=== PATIENT | male | born 1995 | race Two or more races ===

== ENCOUNTER 2019-01-02 16:20 | Emergency (ER) | payer OTHER ==
[2019-01-02 16:29] VITALS: BP 140/94
--- NOTE | 2019-01-02 18:09 | ER Document Report ---
HPI - HPI Time Seen by Provider: 01/02/19 17:36 Pain Level: 4 Notes: Patient is a 23-year-old male who presents the emergency department with chief complaint of right ear pain. Patient reports this is been going on since this morning. He denies any fever. He does report recent upper respiratory infection. - CONSTITUTIONAL Constitutional: DENIES: Fever, Chills - EENT EENT: REPORTS: Ear Pain - right Past Medical History - General Information source: Parent - Social History Smoking Status: Never Smoker Frequency of alcohol use: None Drug Abuse: None Family History: Reviewed & Not Pertinent Patient has suicidal ideation: No Patient has homicidal ideation: No - Medical History Medical History: Negative Renal/ Medical History: Denies: Hx Peritoneal Dialysis Surgical Hx: Negative - Immunizations Immunizations up to date: Yes Vertical Provider Document - CONSTITUTIONAL Notes: PHYSICAL EXAMINATION: GENERAL: Well-appearing, well-nourished and in no acute distress. HEAD: Atraumatic, normocephalic. EYES: Pupils equal round extraocular movements intact, conjunctiva are normal. ENT: Nares patent, erythematous, bulging right tympanic membrane. Unremarkable left tympanic membrane. NECK: Normal range of motion LUNGS: No respiratory distress Musculoskeletal: Normal range of motion NEUROLOGICAL: Normal speech, normal gait. PSYCH: Normal mood, normal affect. SKIN: Warm, Dry, normal turgor, no rashes or lesions noted. - INFECTION CONTROL TRAVEL OUTSIDE OF THE [place] IN LAST 30 DAYS: No Course - Re-evaluation Re-evalutation: Patient's physical examination is most consistent with otitis media. Patient will be started on amoxicillin. Patient encouraged to continue taking Tylenol or ibuprofen for pain. Patient verbalizes understanding of same. - Vital Signs Vital signs: Temp Pulse Resp BP Pulse Ox 98.6 F 89 18 140/94 H 98 01/02/19 16:27 01/02/19 16:27 01/02/19 16:27 01/02/19 16:27 01/02/19 16:27 Discharge - Discharge Clinical Impression: Otitis media Qualifiers: Otitis media type: unspecified Laterality: right Qualified Code(s): H66.91 - Otitis media, unspecified, right ear Condition: Stable Disposition: HOME, SELF-CARE Additional Instructions: OTITIS MEDIA: You have a middle ear infection (otitis media). This is usually a complication of a cold or sore throat. The middle ear cavity becomes filled with infection. Pressure and stretching of the ear drum cause pain. Antibiotics are required. A 10 day course is usually prescribed. A decongestant may be recommended if you have a "runny nose." You may need anesthetic drops or other pain medication. A follow-up exam may be recommended to make sure the infection has completely cleared. If the ear begins to drain, it means the ear drum has ruptured. This will usually heal spontaneously. However, it means you should keep the ear dry until re-examined by a doctor. Call the physician or return for examination at once if there is severe headache, stiff neck, confusion, increasing fever, or dizziness. You should improve significantly within two days. If you're not better, call the doctor. AMOXICILLIN: Amoxicillin is a member of the penicillin family. It covers the germs likely to cause ear, bronchial, and urinary infections better than plain penicillin. Amoxicillin can be taken without regard to meals. Nausea after taking the medication is rare, but can occur. Diarrhea can occur, particularly in small children. Vaginal yeast infections and oral thrush in infants are also common. Contact your physician if these problems occur. Allergy to penicillins is common. If you have had an allergic reaction to any drug of the penicillin family, you should never take any other penicillin. Notify your doctor at once if you develop hives, itching, swelling, faintness, or shortness of breath. Less serious side effects can include nausea or diarrhea. FOLLOW-UP CARE: If you have been referred to a physician for follow-up care, call the physicians office for an appointment as you were instructed or within the next two days. If you experience worsening or a significant change in your symptoms, notify the physician immediately or return to the Emergency Department at any time for re-evaluation. Prescriptions: Amoxicillin 1 tab PO TID #30 tab
== END 2019-01-02 18:18 | disposition home or self-care (01) ==
LOC: ER 16:20
DX: H66.91 Otitis media, unspecified, right ear (principal); H92.01 Otalgia, right ear
CPT/HCPCS: 99282

== ENCOUNTER 2019-03-21 15:41 | Emergency (ER) | payer OTHER ==
[2019-03-21] MEDS ORDERED: IBUPROFEN 800 MG TABLET PO ONE (16:36)
--- NOTE | 2019-03-21 17:23 | RADIOLOGY REPORT (SQ) ---
EXAM DESCRIPTION: SHOULDER RIGHT 2 OR MORE VIEWS COMPLETED DATE/TIME: 03/21/2019 5:01 pm REASON FOR STUDY: pain COMPARISON: None. NUMBER OF VIEWS: Three views. TECHNIQUE: Internal rotation, external rotation, and Y view images acquired of the right shoulder. LIMITATIONS: None. FINDINGS: MINERALIZATION: Normal. BONES: No acute fracture or dislocation. No worrisome bone lesions. JOINTS: No dislocation. VISUALIZED LUNGS AND RIBS: No pneumothorax. No rib fracture. SOFT TISSUES: No radiopaque foreign body. OTHER: No other significant finding. IMPRESSION: NO RADIOGRAPHIC EVIDENCE OF ACUTE INJURY. TECHNICAL DOCUMENTATION: JOB ID: [id number] [place]-72 2010 [employer]- All Rights Reserved Reading location - IP/workstation name: [employer]
--- NOTE | 2019-03-21 17:56 | ER Document Report ---
HPI - HPI Patient complains to provider of: Right shoulder pain Time Seen by Provider: 03/21/19 16:29 Pain Level: 1 Context: Patient is otherwise healthy 23-year-old male presents to the emergency department for right shoulder pain. Patient states yesterday while he was lifting weights he felt a popping sensation in his right shoulder. States he has had increased pain since with decreased range of motion of his right shoulder. Patient is denying any numbness or tingling of any extremity, neck, back pain. Past medical history: None Medications: None Allergies: None - MUSCULOSKELETAL Musculoskeletal: REPORTS: Extremity pain Past Medical History - General Information source: Patient - Social History Smoking Status: Never Smoker Family History: Reviewed & Not Pertinent Patient has suicidal ideation: No Patient has homicidal ideation: No Renal/ Medical History: Denies: Hx Peritoneal Dialysis - Immunizations Immunizations up to date: Yes Vertical Provider Document - CONSTITUTIONAL Agree With Documented VS: Yes Notes: GENERAL: Alert, interacts well. No acute distress. HEAD: Normocephalic, atraumatic. EYES: Pupils equal, round, and reactive to light. Extraocular movements intact. ENT: Oral mucosa moist, tongue midline. NECK: Full range of motion. Supple. Trachea midline. LUNGS: Clear to auscultation bilaterally, no wheezes, rales, or rhonchi. No respiratory distress. HEART: Regular rate and rhythm. No murmur ABDOMEN: Soft, non-tender. Non-distended. Bowel sounds present in all 4 quadrants. EXTREMITIES: Moves all 4 extremities spontaneously. No edema, normal radial and dorsalis pedis pulses bilaterally. No cyanosis. Patient has pain right t rapezius muscle, no erythema, ecchymosis felt, no crepitus noted. Patient does have decreased range of motion right shoulder secondary due to pain. No pain right elbow, wrist. BACK: no cervical, thoracic, lumbar midline tenderness. No saddle anesthesia, normal distal neurovascular exam. NEUROLOGICAL: Alert and oriented x3. Normal speech. cranial nerves II through XII grossly intact PSYCH: Normal affect, normal mood. SKIN: Warm, dry, normal turgor. No rashes or lesions noted. - INFECTION CONTROL TRAVEL OUTSIDE OF THE [place] IN LAST 30 DAYS: No Course - Re-evaluation Re-evalutation: 03/21/19 17:54 Patient's x-rays revealed no signs of abnormalities. I discussed this at length with patient at bedside. Discussed need for potential MRI and follow-up with orthopedics. Patient voices understanding is stable for discharge. - Vital Signs Vital signs: Temp Pulse Resp BP Pulse Ox 98.8 F 88 16 137/87 H 99 03/21/19 15:52 03/21/19 15:52 03/21/19 15:52 03/21/19 15:52 03/21/19 15:52 Discharge - Discharge Clinical Impression: Right shoulder pain Qualifiers: Chronicity: acute Qualified Code(s): M25.511 - Pain in right shoulder Condition: Stable Disposition: HOME, SELF-CARE Instructions: Shoulder Injury (OM), Exercise Program for the Shoulder ([facility]) Additional Instructions: As we discussed you have been seen and treated in the emergency department for your right shoulder pain. Your x-rays revealed no signs of abnormalities. You need to follow-up with orthopedics. Dr. Tammie Abrams's information will be provided in this packet. He will likely order an MRI which at this point is warranted to check for any muscular, ligament, tendon injuries. Please make sure you return to the emergency room should he have any other concerning symptoms, follow-up with your primary care provider in the next 24 to 48 hours. Forms: Return to Work Referrals: TAMMIE ABRAMS MD [ACTIVE STAFF] - Follow up as needed
[2019-03-21 18:20] VITALS: BP 137/84
== END 2019-03-21 18:00 | disposition home or self-care (01) ==
LOC: ER 15:41
DX: M25.511 Pain in right shoulder (principal)
CPT/HCPCS: 99283